=== PATIENT | female | born 1985 | race Asian ===

== ENCOUNTER 2019-12-28 06:17 | Day surgery (SDC) | payer MEDICAID ==
[2019-12-24 16:16] LABS: BASOPHILS % (AUTO) 0.6 % (0-1); EOSINOPHILS # (AUTO) 0.1 X10'3 (0-0.9); EOSINOPHILS % (AUTO) 1.4 % (0-6); LYMPHOCYTES # (AUTO) 1.7 X10'3 (1.1-4.8); LYMPHOCYTES % (AUTO) 23.2 % (21-51); MEAN CORPUSCULAR HEMOGLOBIN 29.9 PG (27.0-31.0); MEAN CORPUSCULAR HGB CONC 33.2 g/dL (33.0-36.5); MEAN CORPUSCULAR VOLUME 89.9 FL (78-98); MEAN PLATELET VOLUME 7.6 FL (7.4-10.4); MONOCYTES # (AUTO) 0.6 X10'3 (0-0.9); MONOCYTES % (AUTO) 7.9 % (2-12); NEUTROPHILS # (AUTO) 4.9 X10'3 (1.8-7.7); NEUTROPHILS % (AUTO) 66.9 % (42-75); PRE OP HEMATOCRIT 39.8 % (35.0-45.0); PRE OP HEMOGLOBIN 13.2 g/dL (12.0-16.0); PRE OP PLATELET COUNT 288 X10'3 (140-440); RED BLOOD COUNT 4.43 X10'6 (4.20-5.60)
[2019-12-24 16:21] LABS: ALBUMIN 3.7 G/DL (3.4-5.0); BLOOD UREA NITROGEN 17 MG/DL (7-18); BUN/CREATININE RATIO 19.1 (6.6-38.0); CALCIUM 8.6 MG/DL (8.5-10.1); CHLORIDE 105 MMOL/L (99-107); CREATININE 0.89 MG/DL (0.40-0.90); PRE OP ANION GAP 8 (8-16); PRE OP GLUCOSE 105 MG/DL (70-104); PRE OP SODIUM 141 MMOL/L (135-145); TOTAL CARBON DIOXIDE 27.9 MMOL/L (24-32); eGFR 72 ML/MIN
[2019-12-24 17:00] LABS: HCG SERUM QL NEGATIVE
[~2019-12-28] VITALS: Ht 160 cm; Wt 79.4 kg
[2019-12-28] VITALS (10 sets, daily range): BP systolic 117–129; BP diastolic 66–78
[~2019-12-28 06:17] MED LIST: PNV1TABL87 PO; famotidine 20mg tablet PO ONE; ringers solution, lacted 1,000 ML IV SCH
[2019-12-28] MEDS ORDERED: ringers solution, lacted 1,000 ML IV SCH (07:51)
[2019-12-28] MEDS ORDERED: proCHLORperazine 10 MG/2 ml inj IV PRN (07:55)
[2019-12-28] MEDS ORDERED: meperidine/PF 25mg/ml syringe IV PRN ×3 (07:55)
[2019-12-28] MEDS ORDERED: ondansetron/PF 4mg/2ml inj IV PRN (07:55)
[2019-12-28] MEDS ORDERED: morphine 4 MG/ML inj SYRINge IV PRN (07:55)
[2019-12-28] MEDS ORDERED: morphine 2 MG/ML inj. syringe IV PRN (07:55)
[2019-12-28] MEDS ORDERED: fentaNYL/PF 50MCG/1 ML 2ML syringe ONE (09:02)
[2019-12-28] MEDS ORDERED: midazolam 2 mg/2 ml injection ONE (09:02)
[2019-12-28] MEDS ORDERED: dexamethasone sod phosphate 10mg/ml inj ONE (09:25)
[2019-12-28] MEDS ORDERED: neostigmine methylsulfate 1 MG/ML 10ml vial ONE (09:25)
[2019-12-28] MEDS ORDERED: sevoflurane 250ml liquid IH ONE (09:25)
[2019-12-28] MEDS ORDERED: glycopyrrolate 0.2mg/ml inj ONE (09:25)
[2019-12-28] MEDS ORDERED: rocuronium 10mg/ml inj IV ONE (09:31)
[2019-12-28] MEDS ORDERED: propofol inj 20 ML IV ONE (09:32)
[2019-12-28] MEDS ORDERED: LIDOcaine 2% (20mg/ml) 5ml vial ONE (09:32)
[2019-12-28] MEDS ORDERED: ketorolac trometh. 30mg/ml inj. ONE (09:36)
[2019-12-28] MEDS ORDERED: ondansetron/PF 4mg/2ml inj ONE (09:36)
[2019-12-28] MEDS ORDERED: BUPIVAcaine/PF 2.5 mg/ml (0.25%) 30ml vial ONE (10:05)
--- NOTE | 2019-12-28 10:34 | NUR ---
Received from OR via [facility], accompanied by Anesthesiologist DR CHAMBERS and report given by Anesthesiologist. PT VERY DROWSY, NO S/S OF DISTRESS/DISCOMFORT, ABDOMEN W/BANDAID CDI, TIMOTHY PAD IN PLACE NO DRAINAGE. Addendum: 12/28/19 at 1114 by Tatiana Borrero RN Amended: Links added.
--- NOTE | 2019-12-28 12:14 | NUR ---
D/C INSTRUCTIONS GIVEN AND GONE OVER W/PT WHO VERBALIZED UNDERSTANDING, PT IS COMFORTABLE AND ABLE TO AMBULATE W/O DIFFICULTY, PT D/CD TO HOME VIA W/C TO PRIVATE VEHICLE W/O INCIDENT. Addendum: 12/28/19 at 1345 by Tatiana Borrero RN Amended: Links added.
== END 2019-12-28 12:14 | disposition home or self-care (01) ==
LOC: PAS 06:17
PROVIDERS: ATTEND Obstetrics & Gynecology
DX: Z30.2 Encounter for sterilization (principal); K42.9 Umbilical hernia without obstruction or gangrene; Z79.899 Other long term (current) drug therapy; Z11.59 Encounter for screening for other viral diseases
CPT/HCPCS: 36415; 49585; 58670; 80048; 82948; 84703; 85025; J1100; J1885; J2001; J2250; J2405; J2704; J2710; J3010; J3490; J7120; U0003; A4618; A7000